=== PATIENT | female | born 2005 | race Caucasian/White ===

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

== ENCOUNTER 2024-03-04 23:55 | Emergency (ER) | payer OTHER, MEDICAID, SELFPAY ==
[2024-03-04 23:58] VITALS: BP 132/70; PULSE 76; RESP 18; TEMP 36.9; O2SAT 98; BMI 33.4
--- NOTE | 2024-03-05 00:02 | CTR_ITS ---
PROCEDURE INFORMATION: Exam: CT Abdomen And Pelvis With Contrast Exam date and time: 03/05/2024 12:44 AM Age: 18 years old Clinical indication: Nausea and vomiting; Abdominal pain; Localized; Right lower quadrant (rlq); Patient HX: Rlq pain with n/v TECHNIQUE: Imaging protocol: Computed tomography of the abdomen and pelvis with contrast. Radiation optimization: All CT scans at this facility use at least one of these dose optimization techniques: automated exposure control; mA and/or kV adjustment per patient size (includes targeted exams where dose is matched to clinical indication); or iterative reconstruction. Contrast material: OMNI 350; Contrast volume: 100 ml; Contrast route: INTRAVENOUS (IV); COMPARISON: US transvaginal [id number] 04/02/2023 9:07 AM RADIATION DOSE METRICS: Total DLP (mGy-cm): 1085.66 FINDINGS: Liver: Normal. No mass. Gallbladder and bile ducts: Normal. No calcified stones. No ductal dilation. Pancreas: Normal. No ductal dilation. Spleen: Normal. No splenomegaly. Adrenal glands: Normal. No mass. Kidneys and ureters: Normal. No hydronephrosis. Stomach and bowel: Small bowel feces sign in the terminal ileum which can be seen in the setting small intestinal bacterial overgrowth (SIBO). Appendix: No evidence of appendicitis. Intraperitoneal space: Unremarkable. No free air. No significant fluid collection. Vasculature: Unremarkable. No abdominal aortic aneurysm. Lymph nodes: Unremarkable. No enlarged lymph nodes. Urinary bladder: Unremarkable as visualized. Reproductive: Unremarkable as visualized. 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 Soft tissues: Unremarkable. CT/CT abdomen pelvis w con* [id number] IMPRESSION: 1. No bowel obstruction. 2. No free air or significant free fluid in the abdomen or pelvis. 3. No evidence of appendicitis. 4. Small bowel feces sign in the terminal ileum which can be seen in the setting small intestinal bacterial overgrowth (SIBO).
--- NOTE | 2024-03-05 00:04 | ED_ITS ---
HPI - Abdominal Pain 2 General: Chief Complaint: Abdominal Pain Stated Complaint: lower abd pain Time Seen by Provider: 03/04/24 23:56 Source: patient Mode of arrival: ambulatory Limitations: no limitations History of Present Illness: 18-year-old female states she had a righ t lower quadrant pain over the last 6 hours. States has been a sharp pain she rates a 6 out of 10 currently she had nausea with the pain she denies any fevers denies any dysuria denies any worse improving factors. Associated Symptoms: Reports nausea; Denies chills, diarrhea, dysuria, fever(s) and vomiting Review of Systems 2 Const: Denies: fever(s), chills, body aches or change in appetite ENMT: Denies: throat pain or dental pain Card: Denies: chest pain Resp: Denies: dyspnea GI: Reports: abdominal pain and nausea; Denies: vomiting or diarrhea : Denies: dysuria Musc: Denies: neck pain or back pain Skin/Breast: Denies: rash Neuro: Denies: headache(s) PFSH ED 2 PFSH: Medical History Spondylolisthesis Had evaluation and activity recommendations by nurse practitioner Laney at [facility] neurosurgery clinic Gastroesophageal reflux disease Ranitidine was initially prescribed in 2012 for her.over the years she has had symptoms of epigastric pain and symptoms in her throat.her father is treated for Demarco esophagitis. Dyspnea on exertion Her presentation and response to albuterol for exercise-induced symptoms 2020 are consistent with mild exercise-induced asthma. Family History Father Heart attack Hyperlipidemia Hypertension Grandmother Diabetes Maternal Hyperlipidemia Maternal and Paternal Hypertension Paternal Denies family history of CAD (coronary artery disease) Clotting disorder Chronic kidney disease (CKD) Bleeding disorder Cancer Thyroid disease Stroke Physical Exam 2 Const: COMMON NORMALS: no acute distress, patient oriented x3 and healthy appearing HENMT: COMMON NORMALS: normocephalic and atraumatic HEAD & SCALP: n ormocephalic and atraumatic Neck/C-Spine: COMMON NORMALS: full ROM and supple Chest: COMMONS NORMALS: normal inspection of the chest Resp: COMMON NORMALS: normal respiratory effort Cardio: COMMON NORMALS: regular rate, regular rhythm and No murmurs present (Cardio) RATE: regular rate RHYTHM: regular rhythm GI: COMMON NORMALS: Normal to inspection, nondistended, normoactive bowel sounds present, Soft to palpation and no masses PALPATION: Yes Soft to palpation and Yes Tenderness to palpation present (GI) Details: RLQ Extremity: COMMON NORMALS: normal to inspection and full ROM Neuro: COMMON NORMALS: patient oriented x3, moves all extremities and no focal motor deficits Psych: COMMON NORMALS: mental status grossly normal, Normal thought process present and cooperative THOUGHT PROCESS: Normal thought process present Skin: COMMON NORMALS: no rashes or lesions noted and no wounds GENERAL SKIN EXAM: no rashes or lesions noted Course 2 Vital Signs: Vital signs: Vital Signs Temperature 98.4 F 03/04/24 23:58 Pulse Rate 76 03/05/24 00:30 Respiratory Rate 18 03/05/24 00:30 Blood Pressure 126/75 03/05/24 00:30 Pulse Oximetry 99 03/05/24 00:30 Oxygen Delivery Me thod Room Air 03/05/24 00:30 MDM - Abdominal Pain Medical Decision Making Patient presents with abdominal pain CT scan here is negative. Her abdominal exam at discharge benign she is stable for discharge she is follow-up with PCP return if worsening. Medical Records I reviewed the patient's medical records. Lab Data I reviewed the patient's lab results. 03/05/24 00:19 03/05/24 00:19 Labs/Radiology: Radiology Impressions Abdomen/Pelvis CT 03/05/24 00:02 IMPRESSION: 1. No bowel obstruction. 2. No free air or significant free fluid in the abdomen or pelvis. 3. No evidence of appendicitis. 4. Small bowel feces sign in the terminal ileum which can be seen in the setting small intestinal bacterial overgrowth (SIBO). Laboratory Results WBC 8.25 10^3/uL (4.5-13.0) 03/05/24 00:19 RBC 4.26 10^6/uL (3.85-5.65) 03/05/24 00:19 Hgb 12.10 g/dL (12.4-14.8) L 03/05/24 00:19 Hct 37.4 % (36-47) 03/05/24 00:19 MCV 87.8 fl (85-98) 03/05/24 00:19 MCH 28.4 pg (27-33) 03/05/24 00:19 MCHC 32.4 g/dL (30-55) 03/05/24 00:19 RDW 12.8 % (12.1-15.1) 03/05/24 00:19 Plt Count 364 10^3/cmm (157-399) 03/05/24 00:19 MPV 10.6 fL (7.4-10.4) H 03/05/24 00:19 Neut % (Auto) 46.3 % 03/05/24 00:19 Lymph % (Auto) 46.3 % 03/05/24 00:19 [place] % (Auto) 5.5 % 03/05/24 00:19 Eos % (Auto) 1.3 % 03/05/24 00:19 Baso % (Auto) 0.4 % 03/05/24 00:19 Neut # (Auto) 3.82 10^3/uL (1.8-8.0) 03/05/24 00:19 Lymph # (Auto) 3.8 10^3/uL (1.5-6.5) 03/05/24 00:19 [place] # (Auto) 0.5 10^3/uL (0.2-0.9) 03/05/24 00:19 Eos # (Auto) 0.1 10^3/uL (0.0-0.8) 03/05/24 00:19 Baso # (Auto) 0.0 10^3/uL (0.0-0.1) 03/05/24 00:19 Nucleated RBC % (auto) 0 % 03/05/24 00:19 Nucleated RBCs # 0.0 /100WBC 03/05/24 00:19 Sodium 140 mmol/L (136-145) 03/05/24 00:19 Potassium 4.2 mmol/L (3.5-5.1) 03/05/24 00:19 Chloride 105 mmol/L (98-107) 03/05/24 00:19 Carbon Dioxide 24 mmol/L (22-29) 03/05/24 00:19 Anion Gap 15.2 (5-19) 03/05/24 00:19 BUN 11 mg/dL (6-20) 03/05/24 00:19 Creatinine 0.7 mg/dL (0.5-0.9) 03/05/24 00:19 GFR Calculation 107.8 mL/min (90-130) 03/05/24 00:19 Glucose 103 mg/dL (65-115) 03/05/24 00:19 Calculated Osmolality 290 mOsm/kg (285-295) 03/05/24 00:19 Calcium 9.3 mg/dL (8.5-10.5) 03/05/24 00:19 Total Bilirubin 0.2 mg/dL (0.15-1.2) 03/05/24 00:19 AST 19 U/L (0-32) 03/05/24 00:19 ALT 23 U/L (0-33) 03/05/24 00:19 Alkaline Phosphatase 102 U/L (35-105) 03/05/24 00:19 Total Protein 7.3 g/dL (6.6-8.7) 03/05/24 00:19 Albumin 4.1 g/dL (3.5-5.2) 03/05/24 00:19 Globulin 3.2 g/dL (1.3-4.6) 03/05/24 00:19 Lipase 26 U/L (13-60) 03/05/24 00:19 HCG, Qual Negative (Negative) 03/05/24 00:19 All radiology interpretation(s) finalized by discharge Discharge Plan Discharge Patient Disposition: Home Clinical Impression: Abdominal pain Condition: Stable Prescriptions: No Action medroxyprogesterone [Depo-Provera] 150 mg/mL syringe 150 mg IM .every 90 days Qty: 1 4RF Discharge Orders: Discharge ED (Routine); Ordered 03/05/24 Ordered By: Jennifer Silverman Referrals: Simone Nunes MD [Primary Care Provider] - Rhina Echeverria MD [Family Provider] - Discharge Diet: Advance as tolerated Discharge Activity: Resume usual activity Patient Instructions: Abdominal Pain (ED) Coding Level of Care Code ED [employer] for [facility]
[2024-03-05] MEDS: sodium chloride 0.9% 1,000 ML 999 ML IV (00:27)
[2024-03-05] MEDS: ondansetron 2 mg/ML SDV 2 mL 4 MG IVP (00:28)
[2024-03-05 00:30] VITALS: BP 126/75; PULSE 76; RESP 18; O2SAT 98; O2SAT 99
[2024-03-05] MEDS: morphine 4 mg/mL SDV 1 mL IVP (00:30)
[2024-03-05 00:32] LABS: Basophils % 0.4 %; Eosinophils # 0.1 10^3/uL (0.0-0.8); Eosinophils % 1.3 %; Hematocrit 37.4 % (36-47); Lymphocytes # 3.8 10^3/uL (1.5-6.5); Lymphocytes % 46.3 %; Mean Corpuscular HGB Conc 32.4 g/dL (30-55); Mean Corpuscular Hemoglobin 28.4 pg (27-33); Mean Corpuscular Volume 87.8 fl (85-98); Mean Platelet Volume 10.6 fL (7.4-10.4); Monocytes # 0.5 10^3/uL (0.2-0.9); Monocytes % 5.5 %; Neutrophils # 3.82 10^3/uL (1.8-8.0); Neutrophils % 46.3 %; Nucleated Red Blood Cells % 0 %; Platelet Count 364 10^3/cmm (157-399); Red Blood Count 4.26 10^6/uL (3.85-5.65); Red Cell Distribution Width 12.8 % (12.1-15.1); White Blood Count 8.25 10^3/uL (4.5-13.0)
[2024-03-05 00:38] LABS: HCG, Serum Qual Negative (Negative)
[2024-03-05] MEDS: iohexol 350 mg/mL 500 mL Btl (per mL) IV (00:45)
[2024-03-05 00:48] LABS: Alanine Aminotransferase 23 U/L (0-33); Albumin Level 4.1 g/dL (3.5-5.2); Alkaline Phosphatase 102 U/L (35-105); Anion Gap 15.2 (5-19); Aspartate Amino Transferase 19 U/L (0-32); Blood Urea Nitrogen 11 mg/dL (6-20); Calcium 9.3 mg/dL (8.5-10.5); Carbon Dioxide 24 mmol/L (22-29); Chloride 105 mmol/L (98-107); Globulin 3.2 g/dL (1.3-4.6); Glomerular Filtration Rate 107.8 mL/min (90-130); Glucose 103 mg/dL (65-115); Lipase 26 U/L (13-60); Osmolality Calculated 290 mOsm/kg (285-295); Potassium 4.2 mmol/L (3.5-5.1); Sodium 140 mmol/L (136-145); Total Bilirubin 0.2 mg/dL (0.15-1.2); Total Protein 7.3 g/dL (6.6-8.7)
[2024-03-05 02:14] VITALS: BP 131/73; PULSE 90; RESP 16; O2SAT 98
== END 2024-03-05 02:09 | disposition home or self-care (01) ==
PROVIDERS: Emergency Provider Emergency Medicine; Family Provider Pediatrics Adolescent Medicine; PCP Family Medicine
DX: R10.31 Right lower quadrant pain (principal)
CPT/HCPCS: 36415; 74177; 80053; 83690; 84703; 85025; 96361; 96374; 96375; 99285; J2270; J2405; J7030; Q9967

== ENCOUNTER 2024-09-05 13:33 | Outpatient (CLI) | payer OTHER, SELFPAY ==
--- NOTE | 2024-09-05 13:37 | MRR_ITS ---
PROCEDURE INFORMATION: Exam: MR Right Lower Extremity Joint Without and With Contrast, Knee Exam date and time: 09/05/2024 1:51 PM Age: 19 years old Clinical indication: Other: Mass of tibia TECHNIQUE: Imaging protocol: Magnetic resonance imaging of the right lower extremity joint without and with contrast. Exam focused on the knee. Contrast material: MULTIHANCE; Contrast volume: 20 ml; Contrast route: INTRAVENOUS (IV); COMPARISON: CR XR knee RT 3V* [id number] 08/21/2024 1:36 PM FINDINGS: Bones/joints: Small amount of physiologic fluid in the knee joint. The bones are intact. The articular cartilage is preserved. 1.4 x 0.8 x 2.4 cm nonenhancing predominantly sclerotic lesion in the medial cortex of the proximal tibial metaphysis with medullary encroachment. Medial meniscus: Unremarkable. No tear. Lateral meniscus: Unremarkable. No tear. Anterior cruciate ligament: Unremarkable. No tear. Posterior cruciate ligament: Unremarkable. No tear. Medial capsule and supporting structures: Unremarkable. No tear. Lateral capsule and supporting structures: Unremarkable. No tear. Extensor mechanism of knee: Unremarkable. No tear. Soft tissues: Unremarkable. MR/MR knee RT wo/w con [id number] IMPRESSION: 1. No acute findings. 2. 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
[2024-09-05] MEDS: gadobenate dimeglumine 20 mL vial IV (13:55)
== END 2024-09-05 13:34 | disposition home or self-care (01) ==
LOC: RAD 13:35
PROVIDERS: Family Provider Pediatrics Adolescent Medicine; PCP Family Medicine; Visit Provider Family Medicine
DX: D16.21 Benign neoplasm of long bones of right lower limb (principal)
CPT/HCPCS: 73723

== ENCOUNTER → 2024-10-16 13:33 | Outpatient (BNVA) | payer OTHER, SELFPAY | PROVIDERS: Family Provider Pediatrics Adolescent Medicine; PCP Family Medicine; Visit Provider Nurse Practitioner | DX: M22.2X1 Patellofemoral disorders, right knee; M25.561 Pain in right knee; G89.29 Other chronic pain; D21.9 Benign neoplasm of connective and other soft tissue, unspecified; Z46.89 Encounter for fitting and adjustment of other specified devices | CPT/HCPCS: 73560; 73565 ==

== ENCOUNTER 2024-10-17 12:44 | Outpatient (CLI) | payer OTHER, SELFPAY | END 2024-10-17 12:45 | disposition home or self-care (01) | LOC: SPT 12:45 | PROVIDERS: Family Provider Pediatrics Adolescent Medicine; PCP Family Medicine; Visit Provider Nurse Practitioner | DX: Z46.89 Encounter for fitting and adjustment of other specified devices (principal); M25.561 Pain in right knee | CPT/HCPCS: L1812 ==

== ENCOUNTER 2024-10-24 06:36 | Outpatient (RCR) | payer OTHER, SELFPAY | END 2024-10-27 23:59 | disposition home or self-care (01) | LOC: SPT 06:36 | PROVIDERS: Family Provider Pediatrics Adolescent Medicine; Visit Provider Nurse Practitioner | DX: M25.561 Pain in right knee (principal) | CPT/HCPCS: 97110; 97161 ==

== ENCOUNTER 2024-10-28 06:30 | Outpatient (RCR) | payer OTHER, SELFPAY | END 2024-11-22 08:17 | disposition home or self-care (01) | LOC: SPT 06:30 | PROVIDERS: Family Provider Pediatrics Adolescent Medicine; Visit Provider Nurse Practitioner | DX: M22.2X1 Patellofemoral disorders, right knee (principal) | CPT/HCPCS: 97110 ==